=== PATIENT | male | born 2000 | race Caucasian/White ===

== ENCOUNTER 2025-05-31 | Emergency (ER) | payer MEDICARE, MEDICAID, SELFPAY ==
[2025-05-31 00:16] VITALS: BP 110/65; PULSE 120; RESP 20; TEMP 37.1; O2SAT 97; BMI 26.4
[2025-05-31 00:19] VITALS: BP 110/65; PULSE 120; RESP 20; TEMP 37.1; O2SAT 97
--- NOTE | 2025-05-31 00:25 | PC.NURSE ---
patient clintona extremely agitated and not making sense, reporting he is going to majo us all and we are violating his rights, uses racial slurs, attempted to calm patient but patient unable follow simple commands.
[2025-05-31 00:28] LABS: MANUAL DIFF FLAG NO
[2025-05-31 00:30] LABS: Hematocrit 41.7 % (42.0-52.0); Hemoglobin 15.2 g/dl (14.0-18.0); Imm Gran Abs Auto 0.13 X10*3/uL (0.00-0.03); Imm Gran Pct Auto 0.8 % (0.0-0.4); Lymphocytes Absolute Auto 4.6 X10*3/uL (1.2-4.9); Mean Corpuscular HGB Conc 36.5 g/dl (31.0-36.0); Mean Corpuscular Hemoglobin 30.0 pg (27.0-33.0); Mean Corpuscular Volume 82.4 fL (80.0-98.0); NRBC Abs Auto 0.000 X10*3/uL (0.0-0.012); NRBC Pct Auto 0.0 /100WBC (0.0-0.2); Platelet Count 416 X10*3/uL (160-400); Red Blood Count 5.06 X10*6/uL (4.60-5.80); White Blood Count 16.0 X10*3/uL (4.8-10.8)
[2025-05-31] MEDS: diazePAM 10 MG/2 ML CARTRIDGE IM (00:32)
[2025-05-31 00:47] LABS: Alanine Aminotransferase 22 U/L (0-40); Albumin Level 5.3 g/dL (3.5-5.0); Alkaline Phosphatase 63 U/L (39-117); Anion Gap 25 (12-20); Aspartate Amino Transferase 32 U/L (5-37); Blood Urea Nitrogen 11 mg/dL (9-16); Calcium 9.6 mg/dL (8.4-10.2); Carbon Dioxide 14 mmol/L (22-29); Chloride 109 mmol/L (96-108); Creatinine Clr Calc Pharmacy 86.1; Estimated Glomerular Filt Rate > 60; Potassium 3.6 mmol/L (3.3-5.1); Sodium 144 mmol/L (135-145); Total Protein 8.3 g/dL (6.5-8.0)
--- NOTE | 2025-05-31 01:15 | ED.PSYCH ---
HPI - Psych General Chief Complaint: ETOH/Substance Use Stated Complaint: etoh Time Seen by Provider: 05/31/25 00:23 Source: patient and EMS Mode of arrival: EMS Limitations: altered mental status and other (Intoxicated) History of Present Illness ED Provider: Dr. Nia Multani HPI Narrative: Patient comes to the emergency room via EMS. EMS states that the police found the patient intoxicated on the street, uncooperative, not making any sense. On arrival, patient belligerent, intoxicated, not making much sense. Patient combative throwing things. Patient needed chemical restraint Related Data Allergies Allergy/AdvReac Type Severity Reaction Status Date / Time No Known Allergies Allergy Verified 05/31/25 00:17 Review of Systems Review of Systems: Yes Other (Patient is too intoxicated and incoherent) [facility] Past Medical History Medical History Alcohol abuse Social History Social History Advance Directives: No Advance Directives Information Provided: Yes Physical Exam Exam: Exam: Appearance: Alert. Combative, yelling, belligerent, not making sense, in coherent Eyes: Pupils equal, round and reactive to light. ENT: Pharynx normal. Neck: Normal inspection. Neck supple. No lymph nodes noted. No crepitus CVS: Normal heart rate and rhythm. Pulses normal. Normal S1 and S2 Respiratory: No respiratory distress. Breath sounds normal. No Wheezing. No rales Abdomen: Soft and nontender. No rigidity. No distention. Skin: Skin warm and dry. Normal skin color. Normal skin turgor. Extremities: No lower extremity edema. No Lacerations. No Rash Neuro: Cranial nerves 2-12 grossly intact, patient is confused, belligerent, intoxicated Psych: Belligerent, intoxicated Vital Signs: Vital Signs: Last Vital Signs Temp 97.8 F 05/31/25 12:07 Pulse 84 05/31/25 12:07 Resp 16 05/31/25 12:07 BP 127/89 05/31/25 12:07 Pulse Ox 96 05/31/25 12:07 O2 Del Method Room Air 05/31/25 12:07 BMI result Body Mass Index 26.4 Course Course Course Narrative: Pretty much on arrival, patient needed to be chemically restrained for his own safety and the staff safety Patient was given IM medications: Diazepam, Benadryl and Haldol Vitals stable Reevaluation(s) Reevaluation #1: Time: 13:18 Date: 05/31/25 Provider: Issa Fraga MD Physician observation ended at 13:18 hours. Patient's alcohol level was 306. He is now awake and appears to be sober. The patient's grandfather is here to take him home. I did discuss alcohol use disorder and told him that he really should get into a detox program and get help with his alcoholism. Patient will be given information regarding local detox programs as well as to our [facility]. Medications Administered Discontinued Medications Generic Name Dose Route Start Last Admin Trade Name Aracelis PRN Reason Stop Dose Admin Diazepam 10 mg 05/31/25 00:24 05/31/25 00:32 Diazepam 10 Mg/2 Ml Cartridge IM 05/31/25 00:25 10 mg STAT STA Administration Diphenhydramine HCl 50 mg 05/31/25 00:24 05/31/25 00:31 Diphenhydramine Hcl 50 Mg/Ml Vial IM 05/31/25 00:25 50 mg ONCE ONE Administration Haloperidol Lactate 5 mg 05/31/25 00:24 05/31/25 00:31 Haloperidol Lactate 5 Mg/Ml Vial IM 05/31/25 00:25 5 mg STAT STA Administration Medical Decision Making Medical Decision Making MDM Narrative: My interpretation of labs: Patient's white blood cell count is 16.0, likely reactive leukocytosis, no obvious source of infection. Patient does have multiple scrapes in lower extremities but superficial, they do not seem infected, no significant abnormality in patient's chemistry, normal LFTs, ETOH 306 Plan: Metabolize to freedom Physician observation started at 01:20 Differential Diagnosis Differential Diagnoses: The differential diagnosis associated with the presentation includes (Alcohol intoxication, polysubstance abuse) Admission/Observation Consideration of admission/observation: Escalation of care including admission/observation considered (Patient is under physician observation waiting to become more sober) Lab Data 05/31/25 00:24 05/31/25 00:24 Labs: Lab Results 05/31/25 05/31/25 Range/Units 00:24 00:44 WBC 16.0 H (4.8-10.8) X10*3/uL RBC 5.06 (4.60-5.80) X10*6/uL Hgb 15.2 (14.0-18.0) g/dl Hct 41.7 L (42.0-52.0) % MCV 82.4 (80.0-98.0) fL MCH 30.0 (27.0-33.0) pg MCHC 36.5 H (31.0-36.0) g/dl RDW 12.5 (11.0-16.0) % Plt Count 416 H (160-400) X10*3/uL MPV 9.3 L (9.4-12.4) fL Immature Gran % (Auto) 0.8 H (0.0-0.4) % Neut % (Auto) 66.5 (45-73) % Lymph % (Auto) 28.7 (20-40) % Barren % (Auto) 3.2 (2-11) % Eos % (Auto) 0.4 (0-4) % Baso % (Auto) 0.4 (0-2) % Lymph # (Auto) 4.6 (1.2-4.9) X10*3/uL Barren # (Auto) 0.5 (0.1-1.2) X10*3/uL Eos # (Auto) 0.1 (0.0-0.4) X10*3/uL Baso # (Auto) 0.1 (0.0-0.2) X10*3/uL Abs Immat Gran (auto) 0.13 H (0.00-0.03) X10*3/uL Absolute Neuts (auto) 10.6 H (2.0-8.3) x10*3/uL Absolute Nucleated RBC 0.000 (0.0-0.012) X10*3/uL Nucleated RBC % (auto) 0.0 (0.0-0.2) /100WBC Sodium 144 (135-145) mmol/L Potassium 3.6 (3.3-5.1) mmol/L Chloride 109 H (96-108) mmol/L Carbon Dioxide 14 L (22-29) mmol/L Anion Gap 25 H (12-20) BUN 11 (9-16) mg/dL Creatinine 1.16 (0.5-1.4) mg/dL Estim Creat Clear Calc 86.1 Estimated GFR > 60 POC Glucose 120 H (60-115) mg/dL Random Glucose 164 H (60-115) mg/dL Calcium 9.6 (8.4-10.2) mg/dL Total Bilirubin 0.7 (0.0-1.0) mg/dL AST 32 (5-37) U/L ALT 22 (0-40) U/L Alkaline Phosphatase 63 (39-117) U/L Total Protein 8.3 H (6.5-8.0) g/dL Albumin 5.3 H (3.5-5.0) g/dL Ethyl Alcohol 306 H* mg/dL Discharge Plan Discharge Clinical Impression: Alcoholic intoxication Instructions: Abuse of Alcohol (ED) Additional Instructions: The legal limit for alcohol intoxication is 80. Your alcohol level was elevated at 306. This has a significantly elevated alcohol level. If you continue to drink alcohol at this level you could possibly from alcohol poisoning or alcoholic liver failure (cirrhosis of the liver). I strongly suggest that you seek help at a local detox centers or follow up with our comprehensive [facility] to get help. Alcohol use disorder You were seen in the Emergency Department today for treatment of alcohol use disorder.? You may have been given medications to help with your withdrawal symptoms.? Please do not drink alcohol with them. This is very dangerous and can cause respiratory depression or other adverse reactions depending on the medication. If you would like to cut down or stop your alcohol use please consider calling our outpatient Addiction Treatment office:? [facility] (M-F [id number]) [address] [place] [address] ? You have also been given a list of treatment providers in the area that can assist as well.? If you experience seizures, vomiting blood, black stools, falls, severe headache, chest pain, fevers, trouble breathing, hallucinations or any other concerns you need to call 911 or seek immediate care. Please stay hydrated. Print Language: Mauritanian
[2025-05-31 02:40] LABS: Glucose, Whole Blood 120 mg/dL (60-115)
[2025-05-31 05:17] VITALS: BP 101/69; PULSE 89; RESP 16; TEMP 36.3; O2SAT 96
--- NOTE | 2025-05-31 09:03 | PC.NURSE ---
Pt alert and oriented, cooperative. Ambulated to bathroom. Pt gave permission to speak to his umm Khan. Pt currently denies pain. No SI/HI. Denies wanting detox. Umm was called and stated he will come pick patient up when he is ready to go. 1:1 sitter at bedside.
--- OUTSIDE RECORDS SUMMARY | 2025-05-31 09:51 | XMS_ITS | Encounter Summary ---
Author Organization [email or web address] Address [address] [place] [address] Care Team Providers Care Registered Representative Name Role Phone La Nena Koch Primary Care Provider [phone] Encounter Details Date Type Department Care Team (Late st Contact Info) Description 08/16/2024 Orders Only [facility] [address], [place] [id number] La Nena Kohc FNP [address] [place] [address] Social History Tobacco Use Types Packs/Day Years Used Date Smoking Tobacco: Former Cigarettes Smokeless Tobacco: Never Alcohol Use Standard Drinks/Week Comments Not Currently 0 (1 standard drink = 0.6 oz pur e alcohol) Depression Answer Date Recorded Patient Health Questionnaire-9 Score 13 08/08/2024 Patient Health Questionnaire-9 Score 13 08/08/2024 Last PHQ-9: Questionnaire Data Not on file 1 Housing Stability Answer Date Recorded What is your housing situation today? I have favian ho 04/11/[address] you li ve. Do you have problems with any of the following? None of the above 04/11/2024 Food Insecurity Answer Date Recorded Within the past 12 months, y ou worried that your food would run out before you got money to buy more: Never True 04/11/2024 Within the past 12 months,th e food you bought just didn't last and you didn't have enough money to get more: Never True 09/2024 Transportation Answer Date Recorded In the past 12 months, has l ack of transportation kept you from medical appts, meetings, work or from getting things needed for daily living? No 04/11/2024 Utilities Answer Date Recorded In the past 12 months, has t he electric, gas, oil or water company threatened to shut off services in your home? No 04/11/2024 Depression Answer Date Recorded Patient Health Questionnaire-2 Score 3 08/08/2024 Sex and Gender Information Value Date Recorded Sex Assigned at Male 04/05/2023 11:37 AM EDT Legal Sex Male 8:33 PM EDT Gender Identity Male 04/05/2023 11:37 AM EDT Sexual Orientation Straight 04/05/2023 11 :37 AM EDT documented as of this encounter Plan of Treatment Upcoming Encounters Date Type Department Care Team (Late st Contact Info) Description 02/08/2026 10:45 AM EDT Office Visit [facility] [address] [place] [address] Lu Moody DO [address] [place] [address] documented as of this encounter Procedures Procedure Name Priority Date/Time Associated Diagnosis Comments US RENAL URINARY BLADDER Routine 08/14/2024 9:46 AM EDT documented in this encounter Results * US Renal Urinary bladder (08/14/2024 9:46 AM EDT) Anatomical Region Laterality Modality Kidney Ultrasound us La Nena LIN IMG US PROCEDURES Final Result documented in this encounter Visit Diagnoses Not on filedocumented in this encounter Additional Health Concerns Assessment Noted Time PHQ-9 Depression Total Score: 13 024 3:04 PM EDT documented as of this encounter Care Teams Registered Representative Relationship Specialty Start Date End Date La Nena Koch FNP [address] [place] [address] PCP - General Family Medicine 04/11/24 documented as of this encounter
[2025-05-31 12:07] VITALS: BP 127/89; PULSE 84; RESP 16; TEMP 36.6; O2SAT 96
[2025-05-31 13:26] VITALS: BP 127/89; PULSE 84; RESP 16; TEMP 36.6; O2SAT 96
== END 2025-05-31 13:39 | disposition home or self-care (01) ==
PROVIDERS: Emergency Medicine; Emergency Provider Emergency Medicine Emergency Medical Services
DX: F10.129 Alcohol abuse with intoxication, unspecified (principal); Y90.8 Blood alcohol level of 240 mg/100 ml or more; Z51.81 Encounter for therapeutic drug level monitoring; Z79.899 Other long term (current) drug therapy
CPT/HCPCS: 36415; 80053; 80307; 82947; 85025; 96372; 99284; J1200; J1630; J3360